=== PATIENT | male | born 1950 | race African-American/Black ===

== ENCOUNTER 2018-09-06 05:15 | Inpatient (IN) | payer OTHER ==
[2018-09-06] VITALS (15 sets, daily range): BP systolic 112–142; BP diastolic 60–83
[~2018-09-06] VITALS: Ht 185.4 cm; Wt 105.2 kg
[~2018-09-06 05:15] MED LIST: ASPIRIN81 MG ORAL; ATORVASTATIN CA40 MG ORAL
[2018-09-06] MEDS ORDERED: Zemuron 50mg/5ml Inj IV ONE (06:27)
[2018-09-06] MEDS ORDERED: LR 1000ml 1,000 ML IVLG SCH (06:44)
[2018-09-06] MEDS ORDERED: Atropine Sulfate 0.4mg/ml inj IVP PRN (06:45)
[2018-09-06] MEDS ORDERED: Hydromorphone 0.5mg/0.5ml inj IVP PRN (06:45)
[2018-09-06] MEDS ORDERED: Meperidine 50mg/ml Inj(FOR RIGORS ONLY) IVP PRN (06:45)
[2018-09-06] MEDS ORDERED: oxyCODONE HCL/Acetaminophen 5/325mg ORAL PRN (06:45)
[2018-09-06] MEDS ORDERED: Norco 5mg/325mg tab ORAL PRN ×2 (06:45→14:45)
[2018-09-06] MEDS ORDERED: LORazepam Inj 2mg/ml 1ml IV PRN (06:45)
[2018-09-06] MEDS ORDERED: HYDROcodone/Acetamin 7.5/325 tab ORAL PRN (06:45)
[2018-09-06] MEDS ORDERED: Midazolam 2mg/2ml Inj IVP PRN (06:45)
[2018-09-06] MEDS ORDERED: Metoclopramide 10mg/2ml Inj IVP PRN (06:45)
[2018-09-06] MEDS ORDERED: fentaNYL 100 mcg/2 mL IV PRN (06:45)
[2018-09-06] MEDS ORDERED: Ketorolac 30mg Inj IV PRN ×2 (06:45)
[2018-09-06] MEDS ORDERED: Acetaminophen (Non formulary) 100 ML IV ONE (06:45)
[2018-09-06] MEDS ORDERED: DiphenhydrAMINE 50mg/ml Inj IVP PRN (06:45)
--- NOTE | 2018-09-06 06:47 | Anethesia Preoperative Eval ---
Anesthesia Pre-op PMH/ROS General Date of Evaluation: Sep 06, 2018 Time of Evaluation: 07:31 Anesthesiologist: Roslyn ASA Score: ASA 3 Mallampati Score Class I : Soft palate, uvula, fauces, pillars visible Class II: Soft palate, uvula, fauces visible Class III: Soft palate, base of uvula visible Class IV: Only hard plate visible Mallampati Classification: Class II Surgeon: Dipika Diagnosis: Back Pain Surgical Procedure: L4-5, L5-S1 Discectomy, Decompression, On-Lay Fusion Anesthesia History: none Family History: no anesthesia problems Allergies: Coded Allergies: No Known Allergies (Unverified , 09/05/18) Medications: see eMAR Patient NPO?: Yes NPO Date: Sep 05, 2018 NPO Time: 2029 Past Medical History Cardiovascular: Reports: other - HL PSxH Narrative: Appendectomy Anesthesia Pre-op Phys. Exam Physician Exam Last Vital Signs Date Time Temp Pulse Resp B/P (MAP) Pulse Ox O2 Delivery O2 Flow Rate FiO2 09/06/18 06:04 Room Air Constitutional: NAD Neurologic: CN 2-12 intact Cardiovascular: RRR Respiratory: CTA Gastrointestinal: S/NT/ND Airway Exam Mallampati Score: Class III MO: full ROM: limited Teeth: missing, broken, loose Anesthesia Pre-op A/P Risk Assessment & Plan Assessment: ASA 3 Plan: GA, SED, GlideScope Go Status Change Before Surgery: No Pre-Antibiotics Dru grams Ancef IV Given Within 1 Hr of Incision: Yes Time Given: 08:46 Tyler Mcgowan MD Sep 06, 2018 06:47
[2018-09-06] MEDS ORDERED: Lidocaine 1% MPF 10mg/ml 5ml ONE (06:48)
[2018-09-06] MEDS ORDERED: fentaNYL 100 mcg/2 mL IV ONE ×4 (06:48→10:35)
[2018-09-06] MEDS ORDERED: Sodium Chloride 10ml vial INJ ONE (06:48)
[2018-09-06] MEDS ORDERED: Dexamethasone 4mg/ml vial ONE (06:48)
[2018-09-06] MEDS ORDERED: Midazolam 2mg/2ml Inj ONE (06:49)
[2018-09-06] MEDS ORDERED: EPINEPHrine 1mg/1ml Amp ONE (07:12)
[2018-09-06] MEDS ORDERED: Thrombin 5000 units TOPIC ONE ×2 (07:13→07:15)
[2018-09-06] MEDS ORDERED: Bacitracin 50000 Units Vial ONE ×2 (07:14→10:34)
[2018-09-06] MEDS ORDERED: Bupivacaine 0.25% Inj 30ml INJ ONE (07:14)
[2018-09-06] MEDS ORDERED: Gelfoam Size TOPIC ONE (07:14)
[2018-09-06] MEDS ORDERED: Bupivacaine 0.5% Inj 30 ml vial INJ ONE (07:14)
[2018-09-06] MEDS ORDERED: Bupivacaine w/Epi 0.5% 30ml Vial INJ ONE (07:14)
[2018-09-06] MEDS ORDERED: Bacitracin Oint 15gm Tube TOPIC ONE (07:15)
--- NOTE | 2018-09-06 07:21 | Immediate Post-Op Evaluation ---
Immediate Post-Op Evalulation Immediate Post-Op Evalulation Procedure: L4-5, L5-S1 Discectomy, Decompression, On-Lay Fusion Date of Evaluation: Sep 06, 2018 Time of Evaluation: 12:19 IV Fluids: 1000 LR Blood Products: 0 Estimated Blood Loss: 75 Urinary Output: 150 Blood Pressure Systolic: 142 Blood Pressure Diastolic: 76 Pulse Rate: 71 Respiratory Rate: 16 O2 Sat by Pulse Oximetry: 100 Pain Score (1-10): 2 Nausea: No Vomiting: No Complications 0 Patient Status: awake, reacts, patent, extubated, none Hydration Status: adequate Dru Grams Ancef IV Given Within 1 Hr of Incision: Yes Time Given: 07:46 Tyler Mcgowan MD Sep 06, 2018 07:21
[2018-09-06] MEDS ORDERED: Glycopyrrolate 0.2mg/ml 1ml Vial ONE (07:30)
[2018-09-06] MEDS ORDERED: Neostigmine 1mg/ml 10ml Inj ONE (07:30)
[2018-09-06] MEDS ORDERED: NS Irrig 1000ml ONE (07:30)
[2018-09-06] MEDS ORDERED: Sterile Water Irrig 1000ml IRRIG ONE (07:30)
[2018-09-06] MEDS ORDERED: Propofol 1,000mg/ 100ml btl IV ONE (07:30)
[2018-09-06] MEDS ORDERED: LR 1000ml ONE (07:30)
--- NOTE | 2018-09-06 07:31 | Pre-Procedure Note/Attestation ---
Pre-Procedure Note/Attestation Complete Prior to Procedure Planned Procedure: left Procedure Narrative: Multilevel lumbar decompression Indications for Procedure Pre-Operative Diagnosis: Lumbar stenosis Attestation I attest that I discussed the nature of the procedure; its benefits; risks and complications; and alternatives (and the risks and benefits of such alternatives ), prior to the procedure, with the patient (or the patient's legal quality control representative). I attest that, if there was a reasonable possibility of needing a blood transfusion, the patient (or the patient's legal quality control representative) was given the [facility] standardized written summary, pursuant to the Mahesh Anibal Blood Safety Act ([place] Health and Safety Code # 1645, as amended). I attest that I re-evaluated the patient just prior to the surgery and that there has been no change in the patient's H&P, except as documented below: SAMIR SANTOS Sep 06, 2018 07:31
[2018-09-06] MEDS ORDERED: Neosporin Oint Ud Pkt TOPIC ONE (11:47)
--- NOTE | 2018-09-06 11:56 | Brief Operative Note ---
Immediate Post Operative Note Operative Note Chief Complaint: LBP and Left leg pain Pre-op Diagnosis: Lumbar stenosis Procedure: Left L3=S1 decompression and L3-4 discectomy Post-op Diagnosis: same as pre-op Findings: consistent w/pre-op dx studies Surgeon: Faith Santos [employer] Attendant: Adarsh Bhatti Anesthesiologist: Adarsh Mcgowan Anesthesia: general Specimen: yes - Disc Complications: none Condition: stable Fluids: See anesth record Estimated Blood Loss: volume - 50 Drains: hemovac - Medium Implant(s) used?: Yes - autograft and putty SAMIR SANTOS Sep 06, 2018 11:56
--- NOTE | 2018-09-06 13:43 | Diagnostic Imaging Report ---
INDICATION: Pain, intraoperative TECHNIQUE: Intraoperative imaging Fluoroscopy time: 3 seconds Total dose: 0.01680 mGym2 Total number of images: One COMPARISON: None FINDINGS: Surgical tools projected posterior to what are presumably the L4 and L5 vertebral segments IMPRESSION: Intraoperative imaging, as described
[2018-09-06] MEDS ORDERED: Chloraseptic Spray 20mL Bottle ORAL SCH (14:37)
[2018-09-06] MEDS ORDERED: Chloraseptic Spray 20mL Bottle ORAL PRN (14:45)
[2018-09-06] MEDS ORDERED: HYDROmorphone 1mg/ml Carpuject SUBQ PRN ×2 (14:45)
[2018-09-06] MEDS ORDERED: Tylenol #3 tab (300mg/30mg) ORAL PRN (14:45)
[2018-09-06] MEDS: ceFAZolin sod 1 GM in D5W 55 ML IV SCH (17:30)
[2018-09-06] MEDS: Docusate 100mg/10ml Liq ORAL SCH (17:30)
[2018-09-06] MEDS ORDERED: Docusate 100mg/10ml Liq NG SCH (18:00)
[2018-09-06] MEDS ORDERED: Docusate 100mg cap ORAL SCH (18:00)
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
[2018-09-06] MEDS: Tamsulosin 0.4mg cap ORAL SCH (20:46)
[2018-09-07] MEDS: ceFAZolin sod 1 GM in D5W 55 ML IV SCH ×2 (01:23→08:52)
[2018-09-07 07:13] LABS: BASOPHILS % (AUTO) 0.7 % (0.0-2.0); EOSINOPHILS % (AUTO) 0.1 % (0.0-3.0); HEMATOCRIT 38.8 % (42.0-52.0); HEMOGLOBIN 13.2 G/DL (14.2-18.0); MEAN CORPUSCULAR VOLUME 88 FL (80-99); MONOCYTES % (AUTO) 9.7 % (1.0-10.0); NEUTROPHILS % (AUTO) 76.6 % (45.0-75.0); PLATELET COUNT 119 K/UL (150-450); RED BLOOD COUNT 4.39 M/UL (4.70-6.10); RED CELL DISTRIBUTION WIDTH 11.1 % (11.6-14.8); WHITE BLOOD COUNT 12.2 K/UL (4.8-10.8)
[2018-09-07 07:48] LABS: ANION GAP 5 mmol/L (5-15); BLOOD UREA NITROGEN 17 mg/dL (7-18); CALCIUM 8.4 MG/DL (8.5-10.1); CARBON DIOXIDE 28 MMOL/L (21-32); CHLORIDE 106 MMOL/L (98-107); CREATININE 1.2 MG/DL (0.55-1.30); POTASSIUM 4.2 MMOL/L (3.5-5.1); SODIUM 139 MMOL/L (136-145)
[2018-09-07 08:00] VITALS: BP 132/83
[2018-09-07] MEDS: Bethanechol 25mg Tab ORAL SCH ×3 (08:51→18:12)
[2018-09-07] MEDS: Docusate 100mg/10ml Liq ORAL SCH ×2 (08:52→18:12)
[2018-09-07 12:00] VITALS: BP 112/78
--- NOTE | 2018-09-07 14:52 | 48 Hour Post Anesthesia Eval ---
Post Anesthesia Evaluation Procedure: L4-5, L5-S1 Discectomy, Decompression, On-Lay Fusion Date of Evaluation: Sep 07, 2018 Time of Evaluation: 14:51 Blood Pressure Systolic: 128 0: 74 Pulse Rate: 64 Respiratory Rate: 20 Temperature (Fahrenheit): 97.6 O2 Sat by Pulse Oximetry: 98 Airway: patent Nausea: No Vomiting: No Pain Intensity: 2 Hydration Status: adequate Cardiopulmonary Status: stable Mental Status/LOC: patient returned to baseline Follow-up Care/Observations: n/a Post-Anesthesia Complications: none Follow-up care needed: N/A Kurt Cabrera MD Sep 07, 2018 14:52
--- NOTE | 2018-09-07 15:30 | Progress Note ---
DATE: 09/07/2018 ACUTE PAIN MANAGEMENT PHYSICIAN PROGRESS NOTE MEDICATIONS: Medication administration record reviewed. Medications include Tylenol, Tylenol No. 3 with Codeine, Mylanta, Catapres, Benadryl, Colace, Pepcid, [place], Dilaudid, Zofran, Chloraseptic spray, and Flomax. LABORATORY STUDIES: From this morning are pending. VITAL SIGNS: Within normal limits. Afebrile, pulse 89, respirations 20, blood pressure 141/60, and oxygen saturation 97% on supplemental oxygen. I spent over 60 minutes in consultation today. I saw the patient at bedside after discussion with the nurse, RN, Hillary. Output from the indwelling lumbar spine drain catheter yesterday dayshift was 80 mL. Overnight, the output was 30 mL. I will maintain the catheter in place for now, since the patient has not yet ambulated. We will continue to follow the output from the drain and likely remove the drain tomorrow morning. The patient states that his pain is adequately controlled on his current analgesic regimen. He is able to use incentive spirometer with good effort without significant pain with coughing. We will see how the patient progresses with physical therapy later today. I did encourage the patient to be generous using the p.r.n. pain medications to enable good advancement with physical therapy. At this time, since this is an elderly gentleman nearly 69 years old who has not yet ambulated, we will keep the Deluna catheter in place and remove the catheter tomorrow morning. I will add Urecholine three times a day along with his Flomax to help reduce the risk for urinary retention issues. The patient remains on telemetry per the request of the surgeon, Dr. Bar. The patient has had no issues with breathing and states that he has no chest pain or shortness of breath. The patient will continue with sequential compression pneumatic devices in place for DVT prophylaxis. Per the surgeon, the patient will continue in the hospital for at least the next 24 hours to monitor his status of rehabilitation. We will continue to follow his laboratory studies, which remain pending from his morning's lab draw. Lukasz Rogers M.D. DR: VASYL JOB#: [id number] CC:
[2018-09-07 20:00] VITALS: BP 110/80
[2018-09-07] MEDS: Tamsulosin 0.4mg cap ORAL SCH (21:48)
[2018-09-08] VITALS: BP 128/64
[2018-09-08 04:00] VITALS: BP 122/66
[2018-09-08 08:00] VITALS: BP 135/70
[2018-09-08] MEDS: Docusate 100mg/10ml Liq ORAL SCH ×2 (08:35→17:12)
[2018-09-08] MEDS: Bethanechol 25mg Tab ORAL SCH (08:36)
--- NOTE | 2018-09-08 17:00 | Progress Note ---
DATE: 09/08/2018 ACUTE PAIN MANAGEMENT PHYSICIAN PROGRESS NOTE MEDICATIONS: Medication administration record reviewed. Medications include Tylenol, Tylenol No. 3 with Codeine, Mylanta, Urecholine, Catapres, Benadryl, Colace, Pepcid, [place], Dilaudid, Zofran, Chloraseptic spray, Flomax. LABORATORY STUDIES: From yesterday, September 07, 2018, postoperative day #1 shows white count 12, hematocrit 39, platelets 119,000. Sodium 139, potassium 4.2, chloride 106, bicarbonate 28, BUN 17, creatinine 1.2, glucose 117, calcium 8.4. VITAL SIGNS: Shows currently afebrile, pulse 100, respirations 18, blood pressure 135/70, oxygen saturation 96% on room air. I spent over 60 minutes in consultation today. I discussed the case with the surgeon, Dr. Bar, and the charge nurse, MARY ELLEN Jimenez. I saw the patient at the bedside with the nurse, MARY ELLEN Montoya. The patient has been doing very well and his Deluna catheter was removed yesterday and he has been voiding urine well. At this point, I will stop the Urecholine and Flomax. The patient has been ambulating well out of bed. He has been sitting in a chair and walking in the hallways. No front-wheeled walker was required at this time. The patient has been cleared by Physical Therapy for discharge. The patient has been tolerating food. The patient has been tolerating his incentive spirometer with good effort. He denies any shortness of breath or chest pain while on continuous telemetry monitoring. We rechecked the postoperative laboratories and the patient's platelet count returned at 120,000, which is his baseline. Output from the indwelling lumbar spine drain catheter overnight was 30 mL. With the nurse, MARY ELLEN Montoya at the bedside, I had the patient moved to the prone position. I removed the lumbar dressing showing the incision line clean and dry with Steri-Strips in-place. I cut the suture holding-in the indwelling lumbar spine drain catheter that had end-expiration, with the Hemovac drain taken off of suction, I personally removed the indwelling lumbar spine drain catheter. The tip was intact. Alcohol swab was applied generously to the drain hole site. Sterile 4 x 4 gauze was then covered over the drain hole site and the Steri-Strip incision line, followed by a 6 x 6 island border gauze dressing sterilely. There were no complications. I spoke with the patient's family law attorney, case finishing machine adjuster Krystal, Krystal will try to set up home health for the patient, is available. The patient will return to home in the care of his roommate later this evening when the roommate gets off of work. The patient feels comfortable to discharge home. His pain has been adequately controlled on his current analgesic regimen. The patient already has adequate pain medications at home. I see no contraindication for discharge trial home at this time. The patient will follow up with Dr. Bar's outpatient clinic in approximately 2 weeks for surgical followup. The patient's left leg symptoms from preoperative, have markedly improved since surgery. Lukasz Rogers M.D. DR: Tamiko JOB#: [id number] CC:
--- NOTE | 2018-09-09 00:45 | Discharge Summary ---
DATE OF ADMISSION: 09/06/2018 DATE OF DISCHARGE: 09/08/2018 ADMITTING PHYSICIAN AND SURGEON: Genesis Bar M.D. CONSULTING PHYSICIAN: Lukasz Rogers M.D., Pain Management. ADMITTING DIAGNOSIS: Lumbar spine stenosis. POSTOPERATIVE DIAGNOSIS: Lumbar spine stenosis. HOSPITAL COURSE: The patient was admitted on 09/06/2018 for elective multilevel lumbar spine decompression for lumbar spine stenosis. The patient tolerated the operation well and was transferred from the operating room to the recovery room without any complications. The patient did well in good stable condition in the recovery room and was transferred to the hospital telemetry floor for continuous cardiac monitoring with his history of chronic cardiac arrhythmia. In addition to continuous telemetry monitoring, the patient had serial vital signs monitoring along with laboratory studies. The patient advanced well with physical therapy training as well as with advancing his diet. The patient's pain was well controlled. Over the next 48 hours, the patient recovered well. His Deluna catheter and lumbar spine drain were removed without any complications. The patient was discharged home to the care of his family with instructions to follow up with Dr. Bar in the outpatient surgical clinic in approximately 2 weeks. Lukasz Rogers M.D. DR: AHMET JOB#: [id number] CC:
== END 2018-09-08 19:33 | disposition home or self-care (01) | DRG 520 ==
LOC: SDSOVERFLO 05:15 → 2E 15:16
PROC: 0SB20ZZ Excision of Lumbar Vertebral Disc, Open Approach (ICD-10-PCS; principal; 2018-09-06 07:30)
PROC: 01NB0ZZ Release Lumbar Nerve, Open Approach (ICD-10-PCS; principal; 2018-09-06 07:30)
PROC: 0SB40ZZ Excision of Lumbosacral Disc, Open Approach (ICD-10-PCS; principal; 2018-09-06 07:30)
DX: M48.061 Spinal stenosis, lumbar region without neurogenic claudication (principal); M51.16 Intervertebral disc disorders with radiculopathy, lumbar region; M51.17 Intervertebral disc disorders with radiculopathy, lumbosacral region; I49.1 Atrial premature depolarization; V49.9XXS Car occupant (driver) (passenger) injured in unspecified traffic accident, sequela; E66.9 Obesity, unspecified; Z79.82 Long term (current) use of aspirin
CPT/HCPCS: 36415; 72020; 76000; 80048; 85025; 86850; 86900; 86901; 87081; 94003; 94150; J2250; J2405; J2710